=== PATIENT | male | born 1990 | race Caucasian/White ===

== ENCOUNTER 2019-04-02 06:59 | Observation (INO) ==
[2019-04-02 07:44] LABS: URINE SOURCE CLEAN CATCH
[2019-04-02 07:45] LABS: BASO# 0.02 X1000 (0.0-0.2); BASO% 0.1 % (0.0-0.8); EOS# 0.01 X1000 (0.0-0.7); EOS% 0.1 % (0.0-10.0); HEMATOCRIT 55.2 % (42.0-52.0); IMM GRAN# 0.04 X1000 (0.0-0.04); IMM GRAN% 0.3 % (0.0-0.5); LYMPH# 0.42 X1000 (1.2-3.4); LYMPH% 2.8 % (20.5-51.1); MCH 28.6 PG (27-31); MCHC 34.4 g/dL (33-37); MONO# 0.74 X1000 (0.11-0.59); MONO% 4.9 % (1.7-9.3); MPV 10.8 FL (7.4-10.4); NEUT# 13.96 X1000 (1.4-6.5); NEUT% 91.8 % (42.2-75.2); PLT 272 X1000 (130-400); RBC 6.65 XMIL (4.7-6.1); RDW 12.3 % (11.5-14.5); WBC 15.19 X1000 (4.8-10.8)
[2019-04-02 07:48] LABS: BILIRUBIN URINE SMALL (NEGATIVE); BLOOD URINE SMALL (NEGATIVE); COLOR YELLOW; GLUCOSE URINE TRACE mg/dL (NEGATIVE); KETONE URINE TRACE mg/dL (NEGATIVE); LEUKOCYTES URINE NEGATIVE (NEGATIVE); NITRITE URINE NEGATIVE (NEGATIVE); PH URINE 5.5; PROTEIN URINE 300 mg/dL (NEGATIVE); SP GRAVITY URINE 1.028; TURBIDITY URINE TURBID (CLEAR); UROBILINOGEN URINE 2 mg/dL (NORMAL)
[2019-04-02 08:12] LABS: ALB/GLOB RATIO 1.8; CALCIUM 10.7 mg/dL (8.8-10.2); CREATININE 2.4 mg/dL (0.7-1.2); POTASSIUM 4.4 mmol/L (3.5-5.1); TOTAL BILIRUBIN 0.97 mg/dL (0.20-1.00); TOTAL PROTEIN 9.5 g/dL (6.3-8.3)
[2019-04-02] MEDS ORDERED: TORADOL IV ONE (08:15)
[2019-04-02] MEDS ORDERED: ZOFRAN IV ONE (08:15)
[2019-04-02] MEDS ORDERED: NS 1,000 ML IV ONE ×3 (08:15→11:37)
[2019-04-02 08:20] LABS: UR EPITHELIAL CELLS <10 /HPF (<10); URINE BACTERIA NEGATIVE /HPF; URINE CASTS GRANULAR PRESENT; URINE CRYSTALS CA OXALATE PRESENT; URINE WBC <10 /HPF (<10)
[2019-04-02 08:23] LABS: INR 1.02; PROTIME 13.5 Seconds (11.0-16.0)
[2019-04-02 08:24] LABS: PTT 35.8 Seconds (22.3-41.8)
[2019-04-02 08:26] LABS: ALBUMIN 6.9 g/dL (3.5-5.0)
--- NOTE | 2019-04-02 08:26 | Diag Imaging Result Doc PS360 ---
EXAM: CHEST-1 VIEW 04/02/2019 HISTORY: Sepsis protocol TECHNIQUE: Erect AP portable at 0817 COMMENT: There is no evidence of acute cardiac or pulmonary disease. The alveolar opacities which were present in the left lower lobe on 05/17/2018 have resolved. IMPRESSION: No acute disease. Electronically signed by Aurelio Hirsch 04/02/2019 8:23 AM
--- NOTE | 2019-04-02 10:59 | Diag Imaging Result Doc PS360 ---
EXAM: CT ABDOMEN/PELVIS W/O CONTRAST 04/02/2019 HISTORY: hematuria TECHNIQUE: This exam was performed using automated exposure control, adjustment of mA or kV according to patient size, and/or use of iterative reconstruction technique. COMMENT: The current study is compared with the previous examination of 10/05/2012. There is no evidence of acute disease in the visualized portion of the chest. There are granulomata in the spleen. There is a 2 mm calculus in the lower pole of the left kidney. There is no evidence of hydronephrosis. There is no evidence of bowel obstruction. The appendix is normal in appearance. There is some fluid in the distal small bowel and colon. This includes the rectum. The urinary bladder is not distended and there is no evidence of free fluid. The regional skeleton is intact. IMPRESSION: Left nephrolithiasis without evidence of obstructive uropathy. Fluid in the colon and small bowel which may be indicative of enterocolitis. Electronically signed by Aurelio Hirsch 04/02/2019 10:56 AM
[2019-04-02] MEDS ORDERED: FLAGYL 500 MG/NS 500 MG/100 ML IVPB IV ONE (11:13)
[2019-04-02] MEDS ORDERED: ZOFRAN IV PRN (11:37)
[2019-04-02] MEDS ORDERED: TYLENOL PO PRN (11:37)
[2019-04-02] MEDS ORDERED: TORADOL IV PRN (11:37)
--- NOTE | 2019-04-02 12:41 | HISTORY AND PHYSICAL ---
PRIMARY CARE PHYSICIAN: None. CHIEF COMPLAINT: Right flank pain, nausea, vomiting, diarrhea, and chills that began last night and progressively worsened. HISTORY OF PRESENTING ILLNESS: This is a 29-year-old male who presents to [facility] with complaints of right flank pain, nausea, vomiting, diarrhea, and chills that began last night. States he has a history of kidney stones, and has had the right flank pain. Denied having any fever or dysuria. His and his son were noted to have a "stomach bug" with some diarrhea at home, and his workup when he arrived showed a heart rate of 139, blood pressure was 97/81. White blood cell count was 15.19, hemoglobin was 19, hematocrit 55.2. His creatinine was 2.4. Plasma lactate of 2.7. Urinalysis was negative, but there were some crystal oxalate present. His CT of the abdomen and pelvis showed left nephrolithiasis without evidence of obstructive uropathy, and fluid in the colon and small bowel, which may be indicative of enterocolitis, so he will be admitted for further evaluation and treatment. PAST MEDICAL HISTORY: Kidney stones. PAST SURGICAL HISTORY: Tonsillectomy. FAMILY HISTORY: Reviewed and noncontributory. SOCIAL HISTORY: Currently lives with his family. Smokes a half a pack of cigarettes a day and has done so since he was 12 years old. Denies any alcohol or illicit drug use. ALLERGIES: He has no known drug allergies. HOME MEDICATIONS: He does not take any medications on a routine basis. IMAGING AND LABORATORY DATA: Laboratory data showed a white blood cell count of 15.19, hemoglobin 19.0, hematocrit 55.2, platelets 272,000. PT and INR of 13.5 and 1.02. Sodium of 141, potassium 4.4, chloride 100, CO2 of 21, BUN of 16 with a creatinine of 2.4, glucose 144. Amylase 62, lipase 25. Plasma lactate of 2.7 on arrival. Repeat 4 hours later was down to 1.4. Urinalysis showed negative nitrites, negative leukocytes, negative bacteria. He had CA oxalate crystals present. CT of the abdomen and pelvis showed left nephrolithiasis without evidence of obstructive uropathy. Fluid in the colon and small bowel, which may be indicative of enterocolitis. Chest x-ray showed no acute disease. REVIEW OF SYSTEMS: He denied any fever. He was positive for chills. Denied any blurred vision, dizziness, chest pain, coughing, shortness of breath. He had nausea, vomiting, diarrhea, and right flank pain. Denied any constipation or burning or hurting with urination. PHYSICAL EXAMINATION: VITAL SIGNS: On arrival, he had a temperature of 97.4 degrees, pulse 139, respirations 20, blood pressure 97/81, saturating 99% on room air. Currently, blood pressure is up to 130/77, heart rate down to 93. GENERAL: This is a 29-year-old male who is lying in the bed and answers questions appropriately. HEENT: Normocephalic, atraumatic. Normal ENT inspection. Oropharynx and nares are clear. Eyes: Pupils are equal, round, and reactive to light and accommodation. Extraocular movements are intact. NECK: Normal inspection. Normal range of motion. LUNGS: Clear to auscultation bilaterally with equal lung expansion and chest wall movement. HEART: Regular rate and rhythm. No murmurs, rubs, or gallops. ABDOMEN: Soft, nontender, nondistended. Bowel sounds are present x4 quadrants. MUSCULOSKELETAL: He has 5/5 strength x4 extremities. GENITOURINARY: He had some right CVA tenderness. No other symptoms at this time. NEUROLOGICAL: The cranial nerves II through XII are grossly intact. ASSESSMENT: 1. Sepsis. 2. Left nephrolithiasis without obstruction. 3. Leukocytosis. 4. Acute kidney injury. 5. Possible enterocolitis. 6. Tobacco abuse. PLAN: He is being admitted to the medical unit, placed on telemetry, O2 per protocol, regular diet. Will consult Urology. Place on normal saline at 125 mL an hour, Levaquin 500 mg IV every 24 hours. Recheck a CBC and BMP in the a.m. We will check a TSH, free T4, and a vitamin B12, and further orders after seen by attending. Dictated by ALFRED Benitez for Sebastian Rajan MD cc: ALFRED Benitez MD
[2019-04-02] MEDS ORDERED: ROCEPHIN 1 GM in NS 50 ML IV SCH (12:45)
[2019-04-02 12:54] LABS: FREE T4 1.18 ng/dL (0.93-1.70); TSH 0.85 uIUmL (0.27-4.20)
--- NOTE | 2019-04-02 12:58 | HISTORY AND PHYSICAL ---
HISTORY: He was in good state of health except that apparently he has 2 children and 1 of whom had what sounds like a viral gastroenteritis. He developed some diarrhea, was feeling fine, went to bed last night, woke up about 2 this morning with diarrhea and right flank pain and very nauseated, threw up several times that he thought he was dying. He came to the emergency room. In the emergency room he was found to have be appear dehydrated. CT scan of his abdomen and pelvis showed left nephrolithiasis flava evidence of obstructive uropathy. There was fluid in the colon and small bowel, which was suspicious for enterocolitis. This was on the left side. Chest x-ray no acute disease. He is feeling better now. We did start some IV fluids. He does not really have any other significant past medical history, so plan is to give him some fluids and his white count was elevated but I suspect that was demargination from nausea and vomiting. We will check his electrolytes and BUN and creatinine in the morning. We will check his thyroid function, B12 and folate as well. I do not see any sign of infection, but because of an elevated white count, will go ahead and give him, he is not allergic to anything, we will give him Rocephin 1 g IV now and then in the morning. He was given some metronidazole 500 mg 1 dose. cc: Sebastian Rajan MD
--- NOTE | 2019-04-02 13:12 | PROVIDER DOCUMENTATION ---
This chart was entered by Christy Torrez Scribe, acting as scribe for Tawny Roach MD. HPI-Male Problem - General Chief Complaint: SEPSIS ALERT - D Stated Complaint: ABD PAIN,V/D,BACK PAIN Time Seen by Provider: 04/02/19 07:24 Source: patient Allergies/Adverse Reactions: Patient Allergies Allergy/AdvReac Type Severity Reaction Status Date / Time No Known Allergies Allergy Verified 04/02/19 07:37 Home Medications: Home Medication List Medication Instructions Recorded Confirmed Last Taken Type NK [No Home Medications] 04/02/19 04/02/19 Unknown History - History of Present Illness-Male Nature of Presenting Problem: 29 y/o male with history of kidney stones presents to the ED with complaint of right flank pain and "I don't feel good" since last night. The patient also reports nausea and vomiting times two. Denies fever and dysuria. He does state he has at home with URI. Location of Complaint: reports: right flank Quality of Pain: reports: cramping Onset/Duration: reports: last night Timing: reports: still present Urinary Symptoms: reports: other (right flank pain). denies: dysuria, hematuria Similar Symptoms Previously?: Yes Recently seen or treated by another doctor?: No Review of Systems - Adult - REVIEW OF SYSTEMS - ADULT Constitutional: denies: chills, fever, night sweats Eyes: reports: no symptoms reported Ears, Nose, Mouth & Throat: reports: no symptoms reported Cardiovascular: reports: no symptoms reported Respiratory: reports: no symptoms reported Gastrointestinal: reports: nausea, vomiting. denies: diarrhea Genitourinary: reports: other (right flank pain). denies: dysuria, hematuria Musculoskeletal: reports: no symptoms reported Integumentary: reports: no symptoms reported Neurological: reports: no symptoms reported Psychiatric: reports: no symptoms reported Endocrine: reports: no symptoms reported Hematologic/Lymphatic: reports: no symptoms reported Allergic/Immunologic: reports: no symptoms reported All Other Systems: Reviewed and Negative Past History - Adult - PAST MEDICAL HISTORY-ADULT Review of Records: reports: Old Records Reviewed, Nursing Assessment Review, Medications Reviewed Major Childhood Illnesses: reports: denies history Cardiovascular: reports: denies history Respiratory: reports: denies history Gastrointestinal: reports: denies history Obstetrical/Gynecological: reports: denies history Genitourinary: reports: denies history Musculoskeletal: reports: denies history Neurological: reports: denies history Endocrine/Immune: reports: denies history Other Conditions: reports: denies history - PRIOR SURGERIES/PROCEDURES Surgical/Procedure History: reports: tonsillectomy - IMMUNIZATION STATUS Childhood Immunizations: See Nurse Assessment Flu Vaccine: See Nurse Assessment - FAMILY HISTORY Family History: reviewed, not pertinent - SOCIAL HISTORY Smoking: cigarettes Provider spent 3-5 mins advising pt. on dangers of tobacco.: Discussed manners t o quit use, and f/u contacts for add'l counseling. Living Situation: family Physical Exam-General - PHYSICAL EXAM-ADULT Initial Vital Signs Reviewed: Yes - CONSTITUTIONAL General Appearance: alert, no apparent distress - HEAD, EARS, NOSE, MOUTH & THROAT HENMT: normocephalic/atraumatic, moist mucous membranes - NECK Neck: full range of motion, supple - RESPIRATORY Respiratory: lungs clear, normal breath sounds, no respiratory distress, no accessory muscle use. negative: rales, rhonchi, wheezing - CARDIOVASCULAR Cardiovascular: regular rate, rhythm, no edema, no gallop, no JVD, no murmur - GASTROINTESTINAL (ABDOMEN) Abdominal Exam: non tender, soft. negative: distended, guarding, rebound - MUSCULOSKELETAL Back Exam: CVA tenderness (right) Extremity: normal range of motion - SKIN Integumentary: normal color, warm/dry. negative: diaphoresis - NEUROLOGIC Neurologic: grossly normal Progress - PLAN OF CARE/RESULTS Progress/Plan/Lab Results: Vital Signs - 8 hr 04/02/19 07:05 04/02/19 08:24 04/02/19 08:31 Temperature 97.4 F L Pulse Rate 139 H 117 H 118 H Respiratory Rate 20 20 16 Blood Pressure 97/81 123/72 O2 Sat by Pulse Oximetry 99 99 100 04/02/19 09:01 04/02/19 09:30 04/02/19 09:31 Temperature Pulse Rate 99 H 91 H 93 H Respiratory Rate 17 21 20 Blood Pressure 126/80 130/77 O2 Sat by Pulse Oximetry 100 99 99 04/02/19 09:48 Temperature Pulse Rate Respiratory Rate Blood Pressure O2 Sat by Pulse Oximetry 99 04/02/19 08:29 Influenza Screen - Final Nasopharyngeal Laboratory Results - last 24 hr 04/02/19 04/02/19 04/02/19 07:26 07:26 07:26 WBC 15.19 H RBC 6.65 H Hgb 19.0 H Hct 55.2 H MCV 83.0 MCH 28.6 MCHC 34.4 RDW Std Deviation 12.3 Plt Count 272 MPV 10.8 H Immature Gran % (Auto) 0.3 Neut % (Auto) 91.8 H Lymph % (Auto) 2.8 L [place] % (Auto) 4.9 Eos % (Auto) 0.1 Baso % (Auto) 0.1 Immature Gran # (Auto) 0.04 Neut # (Auto) 13.96 H Lymph # (Auto) 0.42 L [place] # (Auto) 0.74 H Eos # (Auto) 0.01 Baso # (Auto) 0.02 PT 13.5 INR 1.02 PTT (Actin FS) 35.8 Sodium 141 Potassium 4.4 Chloride 100 Carbon Dioxide 21 L Anion Gap 20 BUN 16 Creatinine 2.4 H Estimated GFR/1.73 m2 32 BUN/Creatinine Ratio 7 Glucose 144 H Calculated Osmolality 285 Calcium 10.7 H Total Bilirubin 0.97 AST 20 ALT 19 Alkaline Phosphatase 75 Troponin T Total Protein 9.5 H Albumin 6.9 H Globulin 3.4 Albumin/Globulin Ratio 1.8 Amylase 62 Lipase 25 Plasma Lactate Vitamin B12 TSH Free T4 Urine Source Urine Color Urine Turbidity Urine pH Ur Specific [place] Urine Protein Ur Glucose (Stick) Ur Ketones (Stick) Urine Blood Urine Nitrite Urine Bilirubin Urobilinogen Dipstick Urine Leukocytes Urine WBC (Auto) Urine RBC (Auto) U Epithel Cells (Auto) Urine Bacteria (Auto) Urine Crystals Small Round Cells Urine Casts Urine Yeast-like Cells 04/02/19 04/02/19 04/02/19 07:26 07:26 07:26 WBC RBC Hgb Hct MCV MCH MCHC RDW Std Deviation Plt Count MPV Immature Gran % (Auto) Neut % (Auto) Lymph % (Auto) [place] % (Auto) Eos % (Auto) Baso % (Auto) Immature Gran # (Auto) Neut # (Auto) Lymph # (Auto) [place] # (Auto) Eos # (Auto) Baso # (Auto) PT INR PTT (Actin FS) Sodium Potassium Chloride Carbon Dioxide Anion Gap BUN Creatinine Estimated GFR/1.73 m2 BUN/Creatinine Ratio Glucose Calculated Osmolality Calcium Total Bilirubin AST ALT Alkaline Phosphatase Troponin T < 0.010 Total Protein Albumin Globulin Albumin/Globulin Ratio Amylase Lipase Plasma Lactate 2.7 H Vitamin B12 613 TSH 0.85 Free T4 1.18 Urine Source Urine Color Urine Turbidity Urine pH Ur Specific [place] Urine Protein Ur Glucose (Stick) Ur Ketones (Stick) Urine Blood Urine Nitrite Urine Bilirubin Urobilinogen Dipstick Urine Leukocytes Urine WBC (Auto) Urine RBC (Auto) U Epithel Cells (Auto) Urine Bacteria (Auto) Urine Crystals Small Round Cells Urine Casts Urine Yeast-like Cells 04/02/19 04/02/19 07:40 11:12 WBC RBC Hgb Hct MCV MCH MCHC RDW Std Deviation Plt Count MPV Immature Gran % (Auto) Neut % (Auto) Lymph % (Auto) [place] % (Auto) Eos % (Auto) Baso % (Auto) Immature Gran # (Auto) Neut # (Auto) Lymph # (Auto) [place] # (Auto) Eos # (Auto) Baso # (Auto) PT INR PTT (Actin FS) Sodium Potassium Chloride Carbon Dioxide Anion Gap BUN Creatinine Estimated GFR/1.73 m2 BUN/Creatinine Ratio Glucose Calculated Osmolality Calcium Total Bilirubin AST ALT Alkaline Phosphatase Troponin T Total Protein Albumin Globulin Albumin/Globulin Ratio Amylase Lipase Plasma Lactate 1.4 Vitamin B12 TSH Free T4 Urine Source CLEAN CATCH Urine Color YELLOW Urine Turbidity TURBID Urine pH 5.5 Ur Specific [place] 1.028 Urine Protein 300 A Ur Glucose (Stick) TRACE Ur Ketones (Stick) TRACE A Urine Blood SMALL A Urine Nitrite NEGATIVE Urine Bilirubin SMALL A Urobilinogen Dipstick 2 A Urine Leukocytes NEGATIVE Urine WBC (Auto) <10 Urine RBC (Auto) 10-20 A U Epithel Cells (Auto) <10 Urine Bacteria (Auto) NEGATIVE Urine Crystals CA OXALATE PRESENT Small Round Cells Not Reportable Urine Casts GRANULAR PRESENT Urine Yeast-like Cells Not Reportable Orders Category Date Time Status Admit - [facility] Routine AdmDCTranf 04/02/19 11:38 Active Activity - Up Ad Denise ORDERED Care 04/02/19 11:37 Active Call Admitting on Arrival AT ADMISSION Care 04/02/19 11:39 Active Cardiac Monitoring DIRECTED Care 04/02/19 08:09 Active IV Insertion ORDERED Care 04/02/19 08:09 Notify MD of + Sepsis Screen NOW Care 04/02/19 08:09 Active Notify Physician As Ordered Care 04/02/19 08:09 Saline Loc DIRECTED Care 04/02/19 07:33 Active Vital Signs Order ROUTINE Care 04/02/19 11:37 Active Z-Document. for Tele Applied ORDERED Care 04/02/19 11:39 Active NPO Diet 04/02/19 07:33 Completed Regular Diet Diet 04/02/19 11:40 Active CHEST-1 VIEW [RAD] Stat Exams 04/02/19 08:[address] ABDOMEN/PELVIS W/O CONTRAST [CT] Stat Exams 04/02/19 10:33 Completed AMYLASE [CHEM] Stat Lab 04/02/19 07:26 Completed BLOOD CULTURE [BLDCUL] Stat Lab 04/02/19 08:29 Results CBC WITH ELECTRONIC DIFF [HEME] Stat Lab 04/02/19 07:26 Completed CK PROFILE [SP CHEM] Stat Lab 04/02/19 08:09 Ordered COMPREHENSIVE METABOLIC PANEL [CHEM] Stat Lab 04/02/19 07:26 Completed FREE T4 Routine Lab 04/02/19 07:26 Completed INFLUENZA SCREEN A/B Stat Lab 04/02/19 08:29 Completed LACTATE, PLASMA [CHEM] Lab 04/02/19 11:12 Completed LACTATE, PLASMA [CHEM] Lab 04/02/19 14:15 Uncollected LACTATE, PLASMA [CHEM] Q3H Lab 04/02/19 07:26 Completed LIPASE [CHEM] Stat Lab 04/02/19 07:26 Completed MAGNESIUM [CHEM] Stat Lab 04/02/19 08:10 Ordered PROTIME WITH INR [COAG] Stat Lab 04/02/19 07:26 Completed PTT [COAG] Stat Lab 04/02/19 07:26 Completed TROPONIN T Stat Lab 04/02/19 07:26 Completed TSH Routine Lab 04/02/19 07:26 Completed URINALYSIS W/POSS RFLX CULT [URINALYSIS] Stat Lab 04/02/19 07:40 Completed URINE MANUAL MICROSCOPIC [URINALYSIS] Stat Lab 04/02/19 07:40 Completed VITAMIN B12 Stat Lab 04/02/19 07:26 Completed 0.9% Sodium Chloride Inj [Ns] 1,000 ml Med 04/02/19 11:37 Active IV 150 mls/hr 0.9% Sodium Chloride Inj [Ns] 1,000 ml Med 04/02/19 08:15 Discontinued IV 999 mls/hr 0.9% Sodium Chloride Inj [Ns] 1,000 ml Med 04/02/19 09:41 Discontinued IV 999 mls/hr Acetaminophen [Tylenol] Med 04/02/19 11:37 Active 650 mg PO Q6H PRN PRN CefTRIAXONE [Rocephin] 1 gm Med 04/02/19 12:45 Active 0.9% Sodium Chloride Inj [Ns] 50 ml IV Q24H Ketorolac [Toradol] Med 04/02/19 08:15 Discontinued 30 mg IV NOW ONE Ketorolac [Toradol] Med 04/02/19 11:37 Active 30 mg IV Q4H PRN PRN Metronidazole 500 mg/Ns [Flagyl 500 mg/Ns] Med 04/02/19 11:13 Discontinued 500 mg in 100 ml IV NOW Ondansetron [Zofran] Med 04/02/19 08:15 Discontinued 4 mg IV NOW ONE Ondansetron [Zofran] Med 04/02/19 11:37 Active 4 mg IV Q4H PRN PRN Oxygen Device Stat Oth 04/02/19 08:09 Active Telemetry [OM.EQ] Routine Oth 04/02/19 11:37 Active Transfer/Admit Order [TRANSFER] Routine Transfer 04/02/19 11:40 Ordered Result Diagrams: 04/02/19 07:26 04/02/19 07:26 - XRAY 1 XRAY Study: Chest (EXAM: CHEST-1 VIEW 04/02/2019 HISTORY: Sepsis protocol TECHNIQUE: Erect AP portable at 0817 COMMENT: There is no evidence of acute cardiac or pulmonary disease. The alveolar opacities which were present in the left lower lobe on 05/17/2018 have resolved. IMPRESSION: No acute disease. Electronically signed by Aurelio Hirsch 04/02/2019 8:23 AM) - CT/MRI 1 CT Study: Abdomen, Pelvis Impression: Abnormal (EXAM: CT ABDOMEN/PELVIS W/O CONTRAST 04/02/2019 HISTORY: hematuria TECHNIQUE: This exam was performed using automated exposure control, adjustment of mA or kV according to patient size, and/or use of iterative reconstruction technique. COMMENT: The current study is compared with the previous examination of 10/05/2012. There is no evidence of acute disease in the visualized portion of the chest. There are granulomata in the spleen. There is a 2 mm calculus in the lower pole of the left kidney. There is no evidence of hydronephrosis. There is no evidence of bowel obstruction. The appendix is normal in appearance. There is some fluid in the distal small bowel and colon. This includes the rectum. The urinary bladder is not distended and there is no evidence of free fluid. The regional skeleton is intact. IMPRESSION: Left nephrolithiasis without evidence of obstructive uropathy. Fluid in the colon and small bowel which may be indicative of enterocolitis. Electronically signed by Aurelio Hirsch 04/02/2019 10:56 AM) - CONSULTS/PCP/HOSPITALIST Notification #1 *Consult/PCP/Hospitalist*: Lyn Hospitalist Time Discussed: 11:31 Reason/Comments: creatinine 2.4, kidney stone Consult Disposition: Admit (to Dr. Rajan) Departure - Departure Date of Disposition Decision: 04/02/19 Time of Disposition Decision: 13:11 DIAGNOSIS: Kidney stone Acute renal failure (ARF) Qualifiers: Acute renal failure type: unspecified Qualified Code(s): N17.9 - Acute kidney failure, unspecified Disposition: ADMITTED INPATIENT 09 Certified Medical Emergency: Emergent Condition: Stable - Critical Care Note This patient required my direct & personal management of CC.: Yes Total Time (mins): 31 Critical Care Statement: This patient required my direct personal management to treat or rule out processes, the absence of which, could potentiallly result in sudden, clinically significant life or limb threatening deterioration. Attestation - Physician/ RON Attestation Patient care was provided by Advanced Practice Provider:: No The physician spent face to face time with patient:: Yes Advanced Practice Provider documentation review:: Supervising physician onsite and consulted in the evaluation and care of this patient. The physician did have a face to face encounter with the patient. This chart was documented by the indicated scribe, (Christy Torrez Scribe) and accurately reflects the services I performed and decisions made by me, Tawny Roach MD, as attested by the provider's signature.
[2019-04-02] MEDS: LEVAQUIN 500 MG/D5W 500 MG/100 ML IVPB IV SCH (14:29)
[2019-04-02] MEDS: NS 1,000 ML IV SCH (23:40)
[2019-04-03 07:30] LABS: BASO# 0.01 X1000 (0.0-0.2); BASO% 0.2 % (0.0-0.8); EOS# 0.08 X1000 (0.0-0.7); EOS% 1.2 % (0.0-10.0); HEMATOCRIT 41.6 % (42.0-52.0); HEMOGLOBIN 13.9 g/dL (14.0-18.0); LYMPH# 1.12 X1000 (1.2-3.4); LYMPH% 17.2 % (20.5-51.1); MCH 28.8 PG (27-31); MCHC 33.4 g/dL (33-37); MCV 86.3 FL (81-99); MONO# 0.67 X1000 (0.11-0.59); MONO% 10.3 % (1.7-9.3); NEUT# 4.62 X1000 (1.4-6.5); NEUT% 71.1 % (42.2-75.2); PLT 161 X1000 (130-400); RBC 4.82 XMIL (4.7-6.1); RDW 12.2 % (11.5-14.5)
[2019-04-03 07:53] LABS: AGAP 11; BUN 18 mg/dL (8-22); CALCIUM 7.2 mg/dL (8.8-10.2); CHLORIDE 111 mmol/L (98-107); COSMO 286; CREATININE 1.2 mg/dL (0.7-1.2); ESTIMATED GFR > 60; GLUCOSE 110 mg/dL (70-104); MAGNESIUM 1.9 mg/dL (1.5-2.7); POTASSIUM 3.9 mmol/L (3.5-5.1); SODIUM 142 mmol/L (136-145); TCO2 20 mmol/L (25-35)
[2019-04-03] MEDS: NS 1,000 ML IV SCH ×3 (07:54→16:09)
--- NOTE | 2019-04-03 10:09 | DISCHARGE SUMMARY ---
ADMISSION DATE: 04/02/2019 DISCHARGE DATE: 04/03/2019 Presented with right flank pain, nausea, vomiting, diarrhea, and chills that began in the night and progressively got worse. This is a 29-year-old male, no primary care physician, presented to [facility] with complaints of right flank pain, nausea, vomiting, diarrhea, and chills that began the night before. He had a history of kidney stones with right flank pain. Denied having fever or dysuria. His and son were noted to have a stomach bug the previous week, and they had some diarrhea at home. His heart rate was 139, blood pressure 97/81. He woke up about 2:00 in the morning, and was very nauseated and throwing up. His creatinine was 2.4. He has had kidney stones before, but this really felt different. He was hurting in the right. He had a CT scan that showed nonobstructing left nephrolithiasis and elevated lactate count. His white count was 15,190, left shift, hematocrit 55, hemoglobin was 19. He appeared to be dehydrated. Gave him some fluid. Creatinine came down to 1.2, felt much better, so I will advance his diet to a soft diet, and I anticipate that he can go home. It looks like he had a viral gastroenteritis. He was not on any home medication. cc: Sebastian Rajan MD
--- NOTE | 2019-04-03 15:41 | CONSULTATION ---
DATE OF CONSULTATION: 04/03/2019 CHIEF COMPLAINT: 1. Right flank pain. 2. Acute kidney injury. 3. Left renal stone. HISTORY PRESENT ILLNESS: Mr. Santana is a 29-year-old who presented to emergency room complained of right flank pain, nausea, vomiting, diarrhea, and chills for approximately 12 hours. The patient has history of kidney stones and felt like he may be having a kidney stone due to his right flank pain. He was denying any fevers, hematuria or dysuria. The patient's and son recently contracted a stomach bug with associated diarrhea. On arrival to the emergency room, patient had tachycardia up to 130 with blood pressure 97/81 with white blood cell count 15.2 with hematocrit of 55.2 and creatinine 2.4 with a lactate of 2.7. Urinalysis showed some small amount of blood with 10 to 20 RBCs as well as some oxalate crystals. CT abdomen, pelvis was performed which showed a small 2 mm left nephrolithiasis without obstruction, also fluid within the colon and small bowel concerning for enterocolitis. The patient was admitted due to his SANJUANITA and chills. The patient has passed 2 stones previously, but this was several years ago. Denies any surgeries previously for kidney stones. Patient was previously by urologist at [place], but this was the only one time. PAST MEDICAL HISTORY: Kidney stones. PAST SURGICAL HISTORY: 1. Tonsillectomy. 2. Adenoidectomy. ALLERGIES: No known drug allergies. HOME MEDICATIONS: No home medications. FAMILY HISTORY: Denies family history of malignancy. Patient does have a positive family history of kidney stones. SOCIAL HISTORY: The patient smokes half a pack of cigarettes a day as well as does dip. Denies alcohol or illicit drug use. REVIEW OF SYSTEMS: 12 point ROS performed with all pertinent positive and negatives in HPI. PHYSICAL EXAMINATION: Vital Signs: Temperature 98.4 degrees, heart rate 74, blood pressure 111/57, oxygenation 100% on room air. General: No acute distress, resting comfortably in bed. Alert and oriented x3. HEENT: Normocephalic, atraumatic. Pupils equal, round, reactive to light. Good dentition. Neck: Trachea midline with no obvious masses. Respiratory: Good respiratory effort without audible wheezing, rales. Cardiovascular: Regular rate and rhythm. No evidence of lower extremity edema. GI: No abdominal tenderness. No palpable abdominal masses. No inguinal hernias. No hepatosplenomegaly. : No suprapubic tenderness. No CVA tenderness, normal phallus, uncircumcised without lesions. Bilateral testicles palpated without asymmetry. No palpable hydroceles or varicoceles. Skin: No obvious skin lesions or rashes. Neurologic: Gross motor and sensory intact. Musculoskeletal: Moving all extremities. LABS: White blood cell count 6.5, hemoglobin 13.9, hematocrit 41.6, platelets 161,000. Sodium 142, potassium 3.9, chloride 111, bicarb 20, BUN 18, creatinine 1.2, glucose 110, calcium 7.2 . IMAGING: CT abdomen, pelvis images reviewed which showed a 2 mm lower pole left renal stone with no evidence of hydronephrosis or obstruction. The patient has fluid within his bowel concerning for possible enterocolitis. ASSESSMENT AND PLAN: Mr. Santana is a 29-year-old who presented to the emergency room complaining of right flank pain with CT abdomen pelvis showing a small stone within the left kidney measuring 2 mm without obstruction. The patient had SANJUANITA with creatinine elevated 2.4 likely related to his nausea, vomiting and associated diarrhea. I do not think the patient's stone is leading to his symptoms. The patient seems to clinically be improving. Urinalysis shows small amount of blood with 10 to 20 RBCs likely related to dehydration. The patient currently is without any symptoms. He denies any flank or abdominal pain. The patient has some urinary frequency and urgency likely related to increased volume of fluids from his IV fluids as well as increased p.o. intake. The patient's creatinine is downtrending at 1.2 from 2.4 yesterday. Urologically, I think patient likely got dehydrated from enterocolitis. Recommend he remain hydrated drinking at least 2 L of water daily. We will plan for him to follow up outpatient regarding hematuria and history of stones. The patient has not had a surgery previously for stones, hopefully the patient will be able to pass this one spontaneously. Reviewed stone diet and limiting dark sodas, sodium, and foods high in oxalate. cc: MD Sebastian Graf MD [facility]
[2019-04-03] MEDS: LEVAQUIN 500 MG/D5W 500 MG/100 ML IVPB IV SCH (16:09)
--- NOTE | 2019-04-03 16:28 | DISCHARGE SUMMARY ---
ADMISSION DATE: 04/02/2019 DISCHARGE DATE: 04/03/2019 PRIMARY CARE PHYSICIAN: None. HISTORY/HOSPITAL COURSE: The patient came in with right flank pain, nausea, vomiting, diarrhea, chills began last night, progressively worsened the night of admission. I think he woke up at 2 in the morning with nausea. He had some diarrhea as well. 29-year-old male presented to [facility] with complaints of right flank pain, nausea, vomiting, diarrhea, chills that began about 2 in the morning. States he had a history of kidney stones in the past, but this did really feel like kidney stone pain. He had right flank pain. We did a CT of the abdomen showed what appeared to be enteritis and he had some he has 2 children at home, 1 apparently had what they thought was a viral gastroenteritis. His blood pressure was 97/81. His creatinine was 2.4, hematocrit 55. CT of the abdomen pelvis showed left nephrolithiasis nonobstructing and there was some fluid around the colon, small bowel which suggested enterocolitis. The patient received some fluids and antiemetics and his creatinine the following morning was down to 1.2. He felt much better. Advanced his diet to soft diet which he tolerated and he wanted to go home. I did ask urology to see, questionable kidney stones. Urinalysis showed small amount of blood, 10 to 20 red blood cells and oxalate crystals. CT of the abdomen and pelvis showed small stones within the left kidney, nonobstructive. Dr. Salinas, the urologist, did not feel the patient's stone was leading to his symptoms and seems to be improving and felt he could go home and felt these were consistent with gastroenteritis and was dehydrated from enterocolitis. DISPOSITION: Discharged home on 04/03/2019. DISCHARGE MEDICATIONS: Really nothing no medications. DISCHARGE INSTRUCTIONS: Encouraged him to get a primary care physician and get some follow-up with primary care in a couple weeks. cc: Sebastian Rajan MD
[2019-04-03 16:47] VITALS: BP 112/52
== END 2019-04-03 17:42 | disposition home or self-care (01) ==
LOC: ED 06:59 → 4N 12:46 → INTOOBSV 12:46
PROVIDERS: ADMIT Emergency Medicine; ATTEND Emergency Medicine